=== PATIENT | female | born 1990 ===

== ENCOUNTER → 2024-12-05 | Outpatient (CLI) | payer OTHER ==
[2024-12-05 20:21] LABS: Bacterial Vaginosis PCR Negative (NEGATIVE); Candida glabrata-krusei, PCR NOT DETECTED (NOT DETECT)
[2024-12-05 20:27] LABS: Candida Group, PCR DETECTED (NOT DETECT)
== END ==
LOC: LAB 19:06 → LAB SHORT 19:06
PROVIDERS: General Practice
DX: N89.8 Other specified noninflammatory disorders of vagina (principal)
CPT/HCPCS: 81515